=== PATIENT | male | born 1990 | race Caucasian/White ===

== ENCOUNTER 2018-12-18 21:33 | Emergency (ER) | payer SELFPAY ==
[~2018-12-18] VITALS: Ht 149.9 cm; Wt 59.0 kg
[2018-12-19] MEDS ORDERED: BACITRACIN ZINC OINT UDPKT TOP ONE (02:30)
[2018-12-19] MEDS ORDERED: IBUPROFEN 600MG TABLET PO ONE (02:30)
[2018-12-19 05:17] VITALS: BP 125/60
== END 2018-12-19 05:21 | disposition home or self-care (01) ==
LOC: ER 21:33
DX: S30.812A Abrasion of penis, initial encounter (principal); H91.90 Unspecified hearing loss, unspecified ear; W01.0XXA Fall on same level from slipping, tripping and stumbling without subsequent striking against object, initial encounter; Y93.89 Activity, other specified; Y92.89 Other specified places as the place of occurrence of the external cause; Y99.8 Other external cause status
CPT/HCPCS: 76870; 93976; 99284

== ENCOUNTER 2018-12-28 08:49 | Emergency (ER) | payer MEDICAID ==
[~2018-12-28] VITALS: Ht 162.6 cm; Wt 52.0 kg
[2018-12-28 09:06] VITALS: BP 111/75
[2018-12-28 11:46] LABS: CLARITY URINE CLEAR (CLEAR); COLOR URINE YELLOW (YELLOW); KETONES URINE NEGATIVE (NEGATIVE); LEUKOCYTE ESTERASE URINE NEGATIVE (NEGATIVE); NITRITE URINE NEGATIVE (NEGATIVE); OCCULT BLOOD URINE 3+ (NEGATIVE); PH URINE 6.5 (4.5-8.0); PROTEIN URINE NEGATIVE (NEGATIVE); SPECIFIC GRAVITY URINE 1.013 (1.005-1.030); UROBILINOGEN URINE 0.2 E.U./dL (0.2-1.0)
[2018-12-28 12:07] LABS: BASOPHILS % 0.4 % (0.0-2.0); EOSINOPHILS % 1.6 % (0.0-5.0); HEMATOCRIT. 46.6 % (42.0-52.0); HEMOGLOBIN. 15.9 g/dL (14.0-18.0); MEAN CORPUSCULAR HEMOGLOBIN 29.2 pg (28.0-32.0); MEAN CORPUSCULAR VOLUME 85.4 fL (80.0-94.0); MEAN PLATELET VOLUME 7.1 fl (7.4-10.4); MONOCYTES % 4.4 % (2.0-8.0); NEUTROPHILS % 80.6 % (40.0-76.0); PLATELET 300 x1000/uL (130-400); RED BLOOD CELL COUNT 5.46 mill/uL (4.7-6.1); RED CELL DISTRIBUTION WIDTH 13.1 % (11.6-14.6)
[2018-12-28 12:14] LABS: CHLORIDE 102 mEq/L (98-107)
[2018-12-28 12:17] LABS: INR 1.1; PROTHROMBIN TIME 10.7 sec (9.1-11.1)
== END 2018-12-28 14:39 | disposition home or self-care (01) ==
LOC: ER 08:49
DX: R31.9 Hematuria, unspecified (principal); F84.0 Autistic disorder; H91.90 Unspecified hearing loss, unspecified ear; F79 Unspecified intellectual disabilities
CPT/HCPCS: 36415; 76770; 99284

== ENCOUNTER 2021-08-08 08:14 | Emergency (ER) | payer SELFPAY ==
[~2021-08-08] VITALS: Ht 160 cm; Wt 68.0 kg
[2021-08-08] MEDS ORDERED: BACITRACIN ZINC OINT UDPKT TOP ONE (08:45)
[2021-08-08] MEDS ORDERED: IBUPROFEN 400MG TABLET PO ONE (08:45)
[2021-08-08] MEDS ORDERED: TETANUS, DIPHTHERIA, PERTUSSIS VAC/PF 0.5ML (>10YR OLD) IM ONE (08:45)
[2021-08-08] MEDS ORDERED: IBUP-2028 MT (08:55)
[2021-08-08] MEDS ORDERED: LORAZEPAM 1MG TABLET PO ONE (10:15)
[2021-08-08 10:54] LABS: BASOPHILS % 0.2 % (0.0-2.0); EOSINOPHILS % 0.4 % (0.0-5.0); HEMATOCRIT. 48.4 % (42.0-52.0); HEMOGLOBIN. 16.4 g/dL (14.0-18.0); LYMPHOCYTES % 7.6 % (20.0-50.0); MEAN CORPUSCULAR HEMOGLOBIN 28.6 pg (28.0-32.0); MEAN CORPUSCULAR VOLUME 84.4 fL (80.0-94.0); MEAN PLATELET VOLUME 6.7 fl (7.4-10.4); MONOCYTES % 5.3 % (2.0-8.0); NEUTROPHILS % 86.5 % (40.0-76.0); PLATELET 279 x1000/uL (130-400); RED BLOOD CELL COUNT 5.74 mill/uL (4.7-6.1); RED CELL DISTRIBUTION WIDTH 12.9 % (11.6-14.6)
[2021-08-08 11:01] LABS: CHLORIDE 102 mEq/L (98-107)
[2021-08-08 11:04] LABS: ETHANOL BLOOD < 10 mg/dL
[2021-08-08 12:07] LABS: CLARITY URINE CLEAR (CLEAR); COLOR URINE YELLOW (YELLOW); KETONES URINE 1+ (NEGATIVE); LEUKOCYTE ESTERASE URINE NEGATIVE (NEGATIVE); NITRITE URINE NEGATIVE (NEGATIVE); OCCULT BLOOD URINE TRACE (NEGATIVE); PROTEIN URINE NEGATIVE (NEGATIVE); SPECIFIC GRAVITY URINE 1.007 (1.005-1.030); UROBILINOGEN URINE 0.2 E.U./dL (0.2-1.0)
[2021-08-08 12:24] LABS: *AMPHETAMINES SCREEN URINE NEGATIVE (NEGATIVE); *BARBITURATES SCREEN URINE NEGATIVE (NEGATIVE); *BENZODIAZEPINES SCREEN URINE NEGATIVE (NEGATIVE); *COCAINE SCREEN URINE NEGATIVE (NEGATIVE); METHADONE URINE SCREEN NEGATIVE (NEGATIVE); OPIATES URINE SCREEN NEGATIVE (NEGATIVE)
[2021-08-08 12:25] LABS: CANNABINOID URINE SCREEN NEGATIVE (NEGATIVE); PHENCYCLIDINE URINE SCREEN NEGATIVE (NEGATIVE)
[2021-08-08] MEDS ORDERED: IBUPROFEN 600MG TABLET PO ONE (20:15)
[2021-08-09] MEDS ORDERED: FLUOXETINE HCL 10 MG CAPSULE PO SCH (13:30)
[2021-08-09] MEDS: DIVALPROEX SODIUM 250MG ER TABLET PO SCH (17:59)
[2021-08-10 05:30] VITALS: BP 135/94
[2021-08-10] MEDS ORDERED: DIVA250T4 PO (06:02)
[2021-08-10] MEDS ORDERED: FLUO10CA28 PO (06:02)
[2021-08-10] MEDS: DIVALPROEX SODIUM 250MG ER TABLET PO SCH (06:43)
== END 2021-08-10 07:01 | disposition home or self-care (01) ==
LOC: ER 08:39
DX: R51.9 Headache, unspecified (principal); M25.522 Pain in left elbow; M25.532 Pain in left wrist; F63.81 Intermittent explosive disorder; U07.1 COVID-19; H91.3 Deaf nonspeaking, not elsewhere classified; F99 Mental disorder, not otherwise specified; Y04.0XXA Assault by unarmed brawl or fight, initial encounter; Y93.89 Activity, other specified; Y92.018 Other place in single-family (private) house as the place of occurrence of the external cause
CPT/HCPCS: 36415; 70450; 73080; 73110; 73560; 80053; 80305; 80307; 80320; 80329; 81003; 85025; 90471; 99285; C9803; U0003; U0005; Z7610; G0480